=== PATIENT | female | born 1995 | race Caucasian/White ===

== ENCOUNTER 2020-09-02 12:47 | Emergency (ER) | payer BC, SELFPAY ==
--- NOTE | ~2020-09-02 | XR_ITS ---
EXAMINATION: XR chest 2V DATE: 09/02/2020 13:30 INDICATION: Chest tightness TECHNIQUE: PA and lateral views of the chest are obtained. COMPARISON: None available FINDINGS: The lungs are free of acute opacities. There is no pleural effusion or pneumothorax. The ca rdiomediastinal silhouette is normal. The visualized bones and soft tissues are unremarkable. Surgica l clips in the right upper quadrant are likely from prior cholecystectomy. IMPRESSION: 1. No acute cardiopulmonary abnormality. Reviewed, dictated and finalized at location A.
[2020-09-02 12:55] VITALS: BP 147/90; PULSE 94; RESP 17; TEMP 37; O2SAT 99
--- NOTE | 2020-09-02 12:59 | ECG_ITS ---
Measurements Intervals [place] Rate: 72 P: 41 IA: 138 QRS: 62 QRSD: 96 T: 10 QT: 372 QTc: 409 Interpretive Statements SINUS RHYTHM WITH MARKED SINUS ARRHYTHMIA DELAYED PRECORDIAL R/S TRANSITION BASELINE ARTIFACT- V3-V5 BORDERLINE ECG Electronically Signed On 09-02-2020 13:11:43 CDT by Sam Miles D.O.
[2020-09-02 13:26] LABS: Basophils Absolute Auto 0.1 K/mm3 (0.0-0.1); Basophils Percent Auto 0.8 % (0.2-1.2); Eosinophils Absolute Auto 0.1 K/mm3 (0-0.3); Eosinophils Percent Auto 1.3 % (0-4.4); Hematocrit 40.2 % (37.0-47.0); Hemoglobin 12.8 g/dL (12.0-15.0); Immature Granulocyte Absolute 0.05 K/mm3 (0.00-0.031); Immature Granulocyte Percent A 0.7 % (0-0.5); Lymphocytes Absolute Auto 2.46 K/mm3 (0.9-3.2); Lymphocytes Percent Auto 34.3 % (18.3-44.2); Mean Corpuscular HGB Conc 31.8 g/dl (32-36); Mean Corpuscular Hemoglobin 29.2 pg (26-34); Mean Corpuscular Volume 91.6 fl (80-100); Monocytes Absolute Auto 0.7 K/mm3 (0.1-0.6); Monocytes Percent Auto 9.7 % (2.6-8.5); Neutrophils Absolute Auto 3.8 K/mm3 (1.3-6.7); Neutrophils Percent Auto 53.2 % (45.5-73.1); Platelet Count Result 289 k/mm3 (150-375); Red Blood Count 4.39 M/mm3 (4.2-5.4); Red Cell Distribution Width 13.4 % (11.5-14.5); White Blood Count 7.2 K/mm3 (4.5-10.0)
[2020-09-02 13:35] LABS: INR 0.9; Partial Thromboplastin Time 27.3 SECONDS (22.3-36.8); Prothrombin Time 13.2 Seconds (11.1-14.7)
[2020-09-02 13:37] LABS: Anion Gap 9 mmol/L (8-16); Blood Urea Nitrogen 8 mg/dL (7-17); Calcium 9.3 mg/dL (8.4-10.2); Carbon Dioxide 26 mmol/L (22-30); Chloride 104 mmol/L (98-107); Estimated CRCL calculation 138 ml/min; Estimated Glomerular Filt Rate > 60; Glucose 109 mg/dL (65-105); Potassium 3.6 mmol/L (3.4-5.0); Sodium 139 mmol/L (137-145)
[2020-09-02 13:49] LABS: Troponin I < 0.012 ng/mL (0.000-0.034)
--- NOTE | 2020-09-02 15:46 | ED.CHESTPAIN ---
HPI - Chest Pain General Chief Complaint: Chest Pain Stated Complaint: chest congestion Time Seen by Provider: 09/02/20 15:33 Source: RN notes reviewed History of Present Illness HPI narrative: Patient presents emergency department from home for chest pain. Patient states she has been having pain for the past 3 days. Pain is located to left side the chest and does not radiate described as a tightness in nature. He states pain is worse when she gets up and moves around or does activity resolves with rest states that the pain will completely resolve when she rests she denies any fevers or chills shortness of breath cough abdominal pain nausea vomiting or any other symptoms. States she is taking no medication for the symptoms denies any trauma or injury Related Data Allergies Allergy/AdvReac Type Severity Reaction Status Date / Time No Known Allergies Allergy Verified 09/02/20 16:10 Review of Systems Review of Systems: Narrative: Gen.: Denies fevers or chills ENT: Denies congestion Respiratory: Denies shortness of breath or cough CV: See HPI GI: Denies abdominal pain nausea, emesis or diarrhea Musculoskeletal: Denies back pain or muscle pain Neuro: Denies numbness, tingling, weakness or focal weakness Skin: Denies rash Except as documented, all other systems reviewed and negative [facility] Past Medical History Medical History (Updated 09/02/20 @ 17:22 by José Antonio Bustos DO) Patient denies significant medical history Social History Social History (Updated 09/02/20 @ 15:47 by José Antonio Bustos DO) Smoking status: Never smoker Exam Narrative: Exam Narrative: APPEARANCE: No acute distress, nontoxic, resting in bed EYES: EOMI HEENT: Normocephalic, atraumatic, OMM RESPIRATORY: No respiratory distress Clear to auscultation bilaterally with no rhonchi wheezing or rales. CARDIOVASCULAR: Regular rate and rhythm without murmurs rubs or gallops. Chest: Pain with full motion of the chest with tenderness palpation left upper chest wall ABDOMINAL: Soft, nontender, nondistended, no rebound or guarding MUSCULOSKELETAl: Moves all extremities. No clubbing, cyanosis or edema. NEURO: Awake and alert. Following commands, speech normal, no focal deficits SKIN:: Warm, dry. No rashes lesions or abrasions PSYCHIATRIC: Normal affect/mood, Course Course Emergency Course: Discussed with patient results of workup and diagnosis. Discussed need for follow-up with primary care, proper use of medication, and reasons to return to the emergency department. Patient understands and agrees to current treatment plan Vital Signs Vital signs: Vital Signs Temperature 98.6 F 09/02/20 12:55 Pulse Rate 94 09/02/20 12:55 Respiratory Rate 17 09/02/20 12:55 Blood Pressure 147/90 H 09/02/20 12:55 Pulse Oximetry 99 09/02/20 12:55 Temperature 98.6 F 09/02/20 12:55 Pulse Rate 84 09/02/20 16:24 Respiratory Rate 16 09/02/20 16:08 Blood Pressure 137/82 09/02/20 16:08 Pulse Oximetry 100 09/02/20 16:08 MDM - Chest Pain MDM Narrative Medical decision making narrative: Patient's EKGs and labs are without significant high risk changes. Cardiac risk factors reviewed. Patient is felt likely low risk for ACS and reasonable for further risk stratification testing as an outpatient. Pain was not sudden or maximal in onset without tearing or ripping quality. No other signs of symptoms suggest aortic dissection. A low-risk Wells criteria is noted, PE is felt to be unlikely. No pneumonia seen on evaluation today. Patient is felt to be a reasonable candidate for continued evaluation as an outpatient Lab Data Result diagrams: 09/02/20 13:16 09/02/20 13:16 Labs: Lab Results 09/02/20 09/02/20 09/02/20 Range/Units 13:16 13:16 13:16 WBC 7.2 (4.5-10.0) K/mm3 RBC 4.39 (4.2-5.4) M/mm3 Hgb 12.8 (12.0-15.0) g/dL Hct 40.2 (37.0-47.0) % MCV 91.6 (80-100) fl MCH 29.2 (26-34) pg MCHC
[2020-09-02 15:58] LABS: D Dimer 0.27 ug/mL (<0.48)
[2020-09-02 16:08] VITALS: BP 137/82; PULSE 82; RESP 16; O2SAT 100
[2020-09-02 16:24] VITALS: PULSE 84
[2020-09-02] MEDS: KETOROLAC 30 MG/ML VIAL (*BKC) IV PUSH (16:47)
[2020-09-02 17:13] LABS: Troponin I < 0.012 ng/mL (0.000-0.034)
[2020-09-02 17:41] VITALS: BP 128/71; PULSE 94; RESP 20; O2SAT 99
== END 2020-09-02 17:43 | disposition home or self-care (01) ==
PROVIDERS: Emergency Medicine; Emergency Provider Emergency Medicine; PCP Family Medicine
DX: R07.89 Other chest pain (principal)
CPT/HCPCS: 36415; 71046; 80048; 84484; 85025; 85380; 85610; 85730; 93005; 96374; 99284; J1885

== ENCOUNTER 2023-09-09 11:07 | Emergency (ER) | payer OTHER, BC, SELFPAY ==
--- NOTE | ~2023-09-09 | US_ITS ---
US OB <=14 wk fetus w TV Ordering provider: Anastasiya Arroyo MD History: . Miscarriage . Comparison: None. Technique: Transabdominal and endovaginal ultrasound of the pelvis (Doppler ultrasound interrogation techniques used as needed for this exam.) FINDINGS: CERVIX: Normal. UTERUS: Measures 7.9x 4.4x 4.7 cm in length which is within normal limits and is anteverted. No myom etrial masses. ENDOMETRIUM: Gestational sac is seen measuring 0.4 cm which is equivalent to 5 weeks and 1 days. No pole or yolk sac seen. CUL DE SAC: No free fluid. RIGHT OVARY: Normal in size measuring 3 x 2.1x 2.5 cm. Normal echotexture. Doppler vascular flow pres ent. LEFT OVARY: Normal in size measuring 4x 2.1x 2.9 cm. Normal echotexture. Doppler vascular flow presen t. ADNEXA: Normal. No mass. IMPRESSION: Intrauterine gestational sac measuring 0.4 cm which is equivalent to 5 weeks and 1 day. No pole or yolk sac seen. Otherwise, normal pelvic ultrasound. Reviewed, dictated and finalized at location A. IMPRESSION: Intrauterine gestational sac measuring 0.4 cm which is equivalent to 5 weeks an d 1 day. No pole or yolk sac seen. Otherwise, normal pelvic ultrasound.
[2023-09-09 11:27] VITALS: BP 154/91; PULSE 93; RESP 18; TEMP 36.8; O2SAT 100
--- NOTE | 2023-09-09 12:13 | ED.FEMALEGU ---
HPI - Female Genitourinary General Chief complaint: Vaginal Bleeding Stated complaint: 7 weeks, vag bleed, cramping Time Seen by Provider: 09/09/23 12:10 28 years old white female 7 weeks 1 para 0 0 workup this morning with slight lower abdominal cramps, but the bathroom wiped showed dark brown blood. Patient denies having similar symptoms. Patient healthy otherwise, does not smoke or drink or uses drugs. Source: patient Related Data Allergies Allergy/AdvReac Type Severity Reaction Status Date / Time No Known Allergies Allergy Verified 09/02/20 16:10 Review of Systems Review of Systems: All systems reviewed & are unremarkable except as noted in HPI and below PMFSH Past Medical History Medical History Patient denies significant medical history Social History Social History Smoking status: Never smoker Exam Narrative: General appearance: Well-developed, well-nourished Skin: Normal color Head: Normocephalic, nontraumatic Eyes: Clear conjunctiva ENT: Oropharynx normal, ears normal, nose normal Neck: Supple, nontender Chest and respiratory: Airway patent, no respiratory distress, no accessory muscle use Heart: Regular rate/rhythm Abdomen: Soft, nontender, no organomegaly, quiet bowel sounds Vascular: Normal peripheral pulses, normal capillary refill. Musculoskeletal: Normal range of motion, nontender back Neurologic: Alert and oriented ?3, [employer] is normal as tested, no gross motor deficit : Speculum Exam - Vagina: normal appearance of the vagina and vaginal bleeding (Dark brown spots in the vaginal pouch, no active bleeding) Speculum Exam - Cervix: normal appearance of the cervix and Cervical os closed Bimanual Exam- Adnexa, other: no masses Course Vital Signs Vital signs: Vital Signs Temperature 36.8 C 09/09/23 11:27 Pulse Rate 93 09/09/23 11:27 Respiratory Rate 18 09/09/23 11:27 Blood Pressure 154/91 H 09/09/23 11:27 Pulse Oximetry 100 09/09/23 11:27 Oxygen Delivery Room Air 09/09/23 11:27 Temperature 36.8 C 09/09/23 11:27 Pulse Rate 93 09/09/23 11:27 Respiratory Rate 18 09/09/23 11:27 Blood Pressure 154/91 H 09/09/23 11:27 Pulse Oximetry 100 09/09/23 11:27 Oxygen Delivery Room Air 09/09/23 11:27 MDM - Female Genitourinary MDM Narrative Medical decision making narrative: Patient is 7 weeks , presents with vaginal spotting/bleeding My plan to get labs, pelvic ultrasound to rule out the possibility of miscarriage. Differential Diagnosis Differential diagnosis: Likely vaginitis and other (Threatened , ) Lab Data 09/09/23 13:04 09/09/23 13:04 Labs: Lab Results 09/09/23 Range/Units 13:04 WBC 9.1 (4.5-10.0) K/mm3 RBC 4.73 (4.2-5.4) M/mm3 Hgb 13.8 (12.0-15.0) g/dL Hct 42.3 (37.0-47.0) % MCV 89.4 (80-100) fl MCH 29.2 (26-34) pg MCHC 32.6 (32-36) g/dl RDW 13.8 (11.5-14.5) % Plt Count 335 (150-375) k/mm3 MPV 9.3 (7.4-10.4) fl Immature Gran % (Auto) 0.8 H (0-0.5) % Neut % (Auto) 67.1 (45.5-73.1) % Lymph % (Auto) 23.7 (18.3-44.2) % [place] % (Auto) 7.6 (2.6-8.5) % Eos % (Auto) 0.4 (0-4.4) % Baso % (Auto) 0.4 (0.2-1.2) % Lymph # (Auto) 2.15 (0.9-3.2) K/mm3 [place] # (Auto) 0.7 H (0.1-0.6) K/mm3 Eos # (Auto) 0.0 (0-0.3) K/mm3 Baso # (Auto) 0.0 (0.0-0.1) K/mm3 Abs Immat Gran (auto) 0.07 H (0.00-0.031) K/mm3 Absolute Neuts (auto) 6.1 (1.3-6.7) K/mm3 Absolute Nucleated RBC 0.000 (0.0-0.012) K/mm3 Nucleated RBC % 0.0 (0.0-0.2)
[2023-09-09 13:15] LABS: Basophils Percent Auto 0.4 % (0.2-1.2); Eosinophils Percent Auto 0.4 % (0-4.4); Hematocrit 42.3 % (37.0-47.0); Hemoglobin 13.8 g/dL (12.0-15.0); Immature Granulocyte Absolute 0.07 K/mm3 (0.00-0.031); Immature Granulocyte Percent A 0.8 % (0-0.5); Lymphocytes Absolute Auto 2.15 K/mm3 (0.9-3.2); Lymphocytes Percent Auto 23.7 % (18.3-44.2); Mean Corpuscular HGB Conc 32.6 g/dl (32-36); Mean Corpuscular Hemoglobin 29.2 pg (26-34); Mean Corpuscular Volume 89.4 fl (80-100); Mean Platelet Volume 9.3 fl (7.4-10.4); Monocytes Absolute Auto 0.7 K/mm3 (0.1-0.6); Monocytes Percent Auto 7.6 % (2.6-8.5); Neutrophils Absolute Auto 6.1 K/mm3 (1.3-6.7); Neutrophils Percent Auto 67.1 % (45.5-73.1); Platelet Count Result 335 k/mm3 (150-375); Red Blood Count 4.73 M/mm3 (4.2-5.4); Red Cell Distribution Width 13.8 % (11.5-14.5); White Blood Count 9.1 K/mm3 (4.5-10.0)
[2023-09-09 13:24] LABS: Alanine Aminotransferase 128 U/L (6-35); Albumin Level 4.8 g/dL (3.5-5.1); Alkaline Phosphatase 100 U/L (38-126); Anion Gap 11 mmol/L (4-12); Aspartate Amino Transferase 90 U/L (14-36); Bilirubin,Total 0.8 mg/dL (0.2-1.3); Blood Urea Nitrogen 6 mg/dL (7-17); Calcium 9.3 mg/dL (8.4-10.2); Carbon Dioxide 24 mmol/L (22-30); Chloride 102 mmol/L (98-107); Estimated CRCL calculation 186 ml/min; Estimated Glomerular Filt Rate > 60; Glucose 222 mg/dL (65-110); Potassium 3.8 mmol/L (3.4-5.0); Sodium 137 mmol/L (137-145)
[2023-09-09 13:40] LABS: Beta HCG Quantitative 656.57 mIU/ML
[2023-09-09 15:29] VITALS: BP 148/72; PULSE 85; RESP 16; O2SAT 98
== END 2023-09-09 15:30 | disposition home or self-care (01) ==
PROVIDERS: Emergency Provider Emergency Medicine; PCP Family Medicine
DX: O24.419 Gestational diabetes mellitus in pregnancy, unspecified control (principal); O20.0 Threatened abortion; Z3A.01 Less than 8 weeks gestation of pregnancy
CPT/HCPCS: 36415; 76801; 76817; 80053; 84702; 85025; 85461; 86850; 86900; 86901; 99284

== ENCOUNTER 2023-09-20 00:43 | Day surgery (SDC) | payer OTHER, BC, SELFPAY ==
--- NOTE | 2023-09-18 06:53 | P.HP_ITS ---
H&P: HPI History of Present Illness Date/Time: 09/18/23 06:53 Chief Complaint: First-trimester incomplete AB Narrative: was a very pleasant 28-year-old 1 para 0 in her 1st trimester with a missed A/ B. Serial ultrasound showed no growth. She for suction dilatation curettage. Risks and benefits were reviewed in great detail [facility] Past Medical History Medical History Patient denies significant medical history Social History Social History Smoking status: Never smoker Meds Home Medications and Allergies Home Medications Medication Instructions Recorded Confirmed Type ibuprofen 600 mg tablet (IBU) 600 mg PO Q6H PRN pain #20 tabs 09/02/20 Rx Allergies Allergy/AdvReac Type Severity Reaction Status Date / Time No Known Allergies Allergy Verified 09/02/20 16:10 Exam Const: General: cooperative, healthy appearing and comfortable Nutritional Appearance: average body habitus Orientation/consciousness: oriented to person, oriented to place and oriented to time HENMT: Head: normal to inspection Resp: Effort & Inspection: normal respiratory effort Cardio: Rate: regular rate Rhythm: regular rhythm Heart sounds: S1 normal heart sound present and S2 normal heart sound present GI: Inspection: normal to inspection : External Female Exam: normal external appearance Speculum Exam - Vagina: normal appearance of the vagina Speculum Exam - Cervix: normal appearance of the cervix ( blood seen at the os) and Cervical os closed Bimanual exam- vagina & uterus: enlarged Bimanual Exam- Adnexa, other: normal adnexae Assessment and Plan Assessment and plan (1) Missed : Code(s): O02.1 - Missed Status: Acute Assessment and Plan: proceed with suction dilatation curettage
[2023-09-18 08:06] VITALS: BMI 39.6
--- NOTE | 2023-09-18 08:07 | PC.NURSE ---
Report to the Outpatient Waiting Room, entrance under the green pavilion located off [facility], at time _1100_ on date _[id number]_. Planned Procedure Time: _1pm_. Time changes happen often and if your time is changed the preop area will call you the afternoon before. - You and your visitor will be asked to self-screen and do not enter if you have any COVID symptoms. - A mask is optional within the hospital at this time. Patients may have clear liquids (water, carbonated beverages, clear teas, apple juice) until 3 hours prior to surgery with a maximum of 20 ounces. - No food from midnight until time of surgery Take the following medications with a SIP of water the morning of surgery: ___None DO NOT STOP ANY OF YOUR OTHER PRESCRIPTION MEDICATIONS PRIOR TO SURGERY ?EXCEPT THE FOLLOWING Medications to discontinue per physician None Date to take last dose Please no make-up, nail divehi, hairspray, perfume, deodorant, or body powder the day of surgery. No jewelry (including any body piercings) or valuables the day of surgery, leave them at home. Please take a shower or bath the night before, or the morning of, surgery with an antibacterial soap. Wear comfortable, loose fitting clothing. - Jewelry must be removed prior to entering the operating room. Rings and piercings that are not removed may be cut off. - The hospital will not accept responsibility for valuables. - Please leave all valuables, including medications, at home the day of surgery. If you are going home after surgery, a licensed stud driver must drive you home. - NO public transportation without another adult if you receive anesthesia. - We recommend that an adult stay with you for 24 hours following discharge. - We also recommend that you do not drive, make important decision, drink alcoholic beverages, or take any drugs that were not prescribed by your health care provider for at least 24 hours after your discharge time. Follow any additional instructions given to you from your surgeon. If you or anyone in your household have experienced Covid symptoms in the past week, please notify your surgeon or the nurse liaison at the phone number below for possible testing. Telephone instructions given to __Jayeshmichael__and asked if any additional questions and then verbalized understanding. Patient advised to call surgeon office or pre surgery nurse liaison [phone] if any additional questions.
--- NOTE | 2023-09-20 06:18 | WPDHPUPDATE1 ---
History and Physical Update Update Date/Time: 09/20/23 06:18 History and Physical has been reviewed, including an updated exam of the patient. There are NO changes in the patient's condition. Risks, benefits, and alternatives have been discussed and questions answered. Patient agrees to proceed with procedure.
[2023-09-20 11:02] VITALS: BP 134/76; PULSE 88; RESP 18; TEMP 36.4; O2SAT 100
--- NOTE | 2023-09-20 11:24 | WPDANESEPPF ---
Anes - Initial Pre Proc Eval Procedure: Operation Date: 09/20/23 13:00 Proposed Procedures p Suction Dilation and Curettage - Jose Cruz Perez MD Date/Time: 09/20/23 11:24 Surgeon: Jose Cruz Perez MD Pre Op Diagnosis: Missed Ab Patient Data Age: 28 Gender: F Height: 1.57 m Weight: 98.2 kg Allergies Allergy/AdvReac Type Severity Reaction Status Date / Time No Known Allergies Allergy Verified 09/20/23 11:09 Home Medications Medication Instructions Recorded Confirmed Type hydrocodone 5 mg-acetaminophen 325 1 tablet PO Q4H PRN pain #14 tabs 09/20/23 Rx mg tablet Patient hx anesthesia problems: none Family hx anesthesia problems: none Results Review: All pre-operative results and documents have been reviewed as part of the pre-operative evaluation. [facility] Past Medical History Medical History Patient denies significant medical history Social History Social History Smoking status: Never smoker Living arrangements: with family Spiritual care concerns: No Anes - Eval Final PreProcedure Day of Procedure 09/20/23 11:24 Patient weight: overweight Heart: regular rate and rhythm Lungs: clear to auscultation Airway: Mallampati scale class III Neurological: alert and oriented Last oral intake: >/= 8 hours ASA classification: II Emergent: no Anesthetic plan: proceed Anesthesia type and monitoring: general GIVS and standard monitoring Results Review: All pre-operative results and documents have been reviewed as part of the pre-operative evaluation. Informed Consent: The patient's anesthetic plan and its attendant risks and benefits were discussed with the patient/family/POA. Questions were solicited and answers provided to the satisfaction of the patient/family/POA.
[2023-09-20] MEDS: LACTATED RINGERS 1,000 ML 30 ML IV CONT (11:31)
[2023-09-20] MEDS: ACETAMINOPHEN 500 MG TABLET 1000 MG PO (11:31)
[2023-09-20] MEDS: LIDOCAINE HCL 1% LOCAL INJ 20 ML VIAL 10 ML INFILTRATE (12:20)
--- NOTE | 2023-09-20 12:21 | W.PM.PROC2 ---
Procedure Note - Detailed Date of Procedure 09/20/23 Pre-op Diagnosis Missed Ab Post-op Diagnosis Same Procedure Performed Suction dilatation curettage Surgeon Jose Cruz Perez MD Anesthesia MAC and Local Indications 28-year-old female with first-trimester missed A/B Findings uterus sounded 9cm. Tissue consistent with products of conception Description of Procedure patient was prepped draped in normal sterile fashion placed in dorsal lithotomy position. Under excellent IV sedation weighted speculum placed in posterior fornix vagina. Anterior lip of the cervix grasped with single-tooth tenaculum. 2.5cc 1% xylocaine anesthesia placed at 2, 4, 8, 10:00 a.m. of the cervix. Uterus sounded to 9cm. Serial dilatation with fragmented dilators performed followed by passes the 5mm the 9. Suction curette moderate amount of tissue was heard removed. When a good grating sound was heard the instruments withdrawn. Patient went to recovery in satisfactory condition. All sponge, needle, instrument counts were correct. There were no immediate complications Estimated Blood Loss 25 Drains No Packing No Pathology Yes Complications No immediate complications Condition Stable Disposition PACU
[2023-09-20 12:25] VITALS: BP 149/88; RESP 18; O2SAT 99
[2023-09-20] MEDS: KETOROLAC 30 MG/ML VIAL (*BKC) IV PUSH (12:28)
[2023-09-20 12:55] VITALS: BP 133/82; PULSE 69; RESP 16
[2023-09-20 13:15] VITALS: BP 125/75; PULSE 66; RESP 16
== END 2023-09-20 13:17 | disposition home or self-care (01) ==
PROVIDERS: PCP Family Medicine; Visit Provider Obstetrics & Gynecology
PROC: (CPT 59820; principal; 2023-09-20 13:00)
DX: O02.1 Missed abortion (principal); Z79.891 Long term (current) use of opiate analgesic; Z79.1 Long term (current) use of non-steroidal anti-inflammatories (NSAID)
CPT/HCPCS: 59820; 88305; A9270; J1885; J2250; J2405; J2704; J3010; J7120

== ENCOUNTER 2024-06-25 13:20 | Outpatient (CLI) | payer SELFPAY ==
--- OUTSIDE RECORDS SUMMARY | 2024-06-25 13:41 | XMS_ITS | Data Portability ---
Author Organization [facility] Address [address] [place] [address] [place] [address] Care Team Providers Care Legal Instructor Name Role Phone CHRIS JACKSON Primary Care Provider [phone] Assessment Encounter Date Assessment Date Assessment LastModified by Organization Details LastModified Time 10/12/2020 10/12/2020 f/u pending pathology [email or web address] Not available 10/12/2020 10:51:05 08/25/2021 08/25/2021 Annual gynecological exam performed. Patient will come back in a year unless there are new symptoms. Not available 08/25/2021 16:05:55 06/14/2023 06/14/2023 Annual gynecological exam performed. Patient will come back in a year unless there are new symptoms. Not available 06/13/2023 15:41:45 Plan of Treatment Reminders Order Date Submit Date Provider Last Modified By Organization Details Last Modified Time Details Appointments None recorded. Lab test, urine 2020 021 [place], [address], [place], [address], 17:25:00 Referral None recorded. Procedures None recorded. Surgeries None recorded. Imaging None recorded. Medication Orders None recorded. Patient TargetsNo targets recorded. Patient InstructionsNo instructions recorded. Reason for Referral None Reported. Results Created Date Observation Date Name Description Value Unit Range Abnormal Flag Note LastModifiedBy Organization Detail LastModifiedTime 10/13/1910/12/2020 SURGI CHITRA PATHO LOGY surgical pathology SEE RESULT S BELOW CASE REPOR T: Surgi chitra Patho logy Repor t Case: [id number] Autho boaz guerra Provi linda: Latha Brunson NP Colle cted: 10/12 1741 Order ing Locat ion: [place] Path[facility] Recei rocio: 10/13 0100 Patho logis t: Tatum Torre MD Speci mens: A) - Cervi x, cervi chitra bx B) - Endoc ervix , ecc brush FINAL DIAGN OSIS: A. Cervi x, biops y: -Low- grade squam ous intra epith elial lesio n (STEPHEN- 1). B. Endoc ervix , curet tage: -Low- grade squam ous intra epith elial lesio n (STEPHEN- 1). Brice gutierrez by Tatum Torre MD on 021 at 1:31 PM ----- ----- ----- ----- ----- ----- ----- ----- ----- ----- ----- ----- ----- ----- ----- ----- ----- ---- CLINI CHITRA INFOR MATIO N: not provi ded MICRO SCOPI C DESCR IPTIO N: A micro scopi c exami natio n was perfo rmed. GROSS DESCR IPTIO N: A. Cervi x. The speci men is label ed with the patie nt's name, demog raphi cs and cerv ical biops y . Recei rocio in forma neal is a 0.3 x 0.3 x 0.1 cm aggre gate of minut e white tissu e and mucus . It is submi tted all in one casse tte. Gross ed by Sherrie Guajardo on B. Endoc ervix . The speci men is label ed with the patie nt's name, demog raphi cs and ECC brush . Recei rocio in forma neal and on a biops y brush is a 0.6 x 0.2 x 0.1 [address]gre gate of minut e white tissu e and mucus . It is submi tted all in 1 casse tte. 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 FINAL DIAGN OSIS: Negat joselyn for Intra epith elial Lesio n or Cintia hodge (NIL) . Funga l organ isms morph ologi nathalie consi stent with Gracie da spp. Elect alannah brown phuc d by Yashira Perez, CT on 2021 at 9:36 AM ----- ----- ----- ----- ----- ----- ----- ----- ----- ----- ----- ----- ----- ----- ----- ----- ----- ---- COMME NT: Note: This speci men was revie wed by a Cytot echno logis t and/o r Patho logis t (as indic ated in this repor t) after evalu ation using the Thinp rep Imagi ng Syste m. CLINI CHITRA INFOR MATIO N: Menst rual Statu s: LMP (if appli cable ): Clini chitra Histo ry/Pr eviou s Pap: Type of Neopl bill (if appli cable ): Signi fican t Clini chitra Findi ngs: Other Histo ry: Hormo forest (if appli cable ): PAP EDUCA TUSHAR L NOTE: The Pap Test is a scree vega test with an inher ent false negat joselyn rate. Liqui d-bas ed sampl ing may decre ase, but will not elimi ilya, false negat joselyn resul ts. A negat joselyn resul t does not precl ude the prese nce and/o r devel opmen t of disea se, since the prese nce of abnor mal cells in the sampl e depen ds on the locat ion of the lesio n and sampl ing techn ique. Caty nued regul ar scree vega is the best metho d of cance r preve ntion . If repor kierra cytol ogic findi ng do not corre late with physi chitra and/o r histo rical findi ngs, furth er inves tigat ion is recom mariana d, as clini nathalie brandon nted. Not Available [facility] (Lab) [address], [place], [address], 08/30/2021 10:38:52 06/14/19 24 06/14/2023 IMAGE GUIDE D PAP, REFLE X HPV IF ASCUS ONLY image guided Pap, reflex HPV ASCUS only SEE RESULT S BELOW CASE REPOR T: Cytol ogy Gynec ologi chitra Repor t Case: [id number] Autho boaz g Provi linda: Karla Nguyen, ALFIE Colle cted: 06/13 1445 Order ing Locat ion: [place] Patho logangelica Recei rocio: 06/16 0819 First Scree n: Cady john ak, Ron ay, CT Rescr een: Chester Vora ed, CT Speci men: Scree vega Pap - Image d, Cervi x STATE MENT OF ADEQU ACY: Satis facto ry for evalu ation Trans forma tion zone compo nent prese nt FINAL DIAGN OSIS: Negat joselyn for Intra epith elial Lesio n or Cintia hodge (NIL) . Elect alnanah beckyangelica phuc d by Chester Vora ed, CT on 024 at 10:52 PM ----- ----- ----- ----- ----- ----- ----- ----- ----- ----- ----- ----- ----- ----- ----- ----- ----- ---- COMME NT: This speci men was revie wed by a Cytot echno logis t and/o r Patho logis t (as indic ated in this repor t) after evalu ation using the Thinp rep Imagi ng Syste m. CLINI CHITRA INFOR MATIO N: Menst rual Statu s: LMP (if appli cable ): 2023 Clini chitra Histo ry/Pr eviou s Pap: Type of Neopl bill (if appli cable ): Signi fican t Clini chitra Findi ngs: Other Histo ry: Hormo forest (if appli cable ): PAP EDUCA TUSHAR L NOTE: The Pap Test is a scree vega test with an inher ent false negat joselyn rate. Liqui d-bas ed sampl ing may decre ase, but will not elimi ilya, false negat joselyn resul ts. A negat joselyn resul t does not precl ude the prese nce and/o r devel opmen t of disea se, since the prese nce of abnor mal cells in the sampl e depen ds on the locat ion of the lesio n and sampl ing techn ique. Caty nued regul ar scree vega is the best metho d of cance r preve ntion . If repor kierra cytol ogic findi ng do not corre late with physi chitra and/o r histo rical findi ngs, furth er inves tigat ion is recom mariana d, as clini nathalie brandon nted. Not Available [facility] (Lab) [address], [place], [address], 06/18/2023 23:55:46 Result Notes None recorded. Problems Name Problem SNOMED Code Status Onset Date Resolution Date Notes Provider Name and Address Organization Details Recorded Time SNOMED CT Concept Completed 201708/10/2020 Encntr for general adult medical exam w/o abnormal findings ;Recorde d Elsewher e: No Locat ion: [facility] S ource: EHR Ramp Attendant deena: N Practi ce ID: 0001 Abebe lable Time: 08:30:00 AM Mary Pizano [facility] 1 14:04:21 Insertio n of subcutan eous contrace ptive Completed 201408/10/2020 Insertio n of implanta ble subderma l contrace ptive;Re corded Elsewher e: No Locat ion: [facility] S ource: EHR Ramp Attendant deena: N Practi ce ID: 0001 Abebe lable Time: 11:00:00 AM Mary Pizano [facility] 1 14:04:16 Syphilis test finding [id number] Completed 201608/10/2020 Encounte r for STD screenin g;Record ed Elsewher e: No Locat ion: [facility] S ource: EHR Ramp Attendant deena: N Practi ce ID: 0001 Abebe lable Time: 04:30:00 PM Mary head [facility] 1 14:04:29 Educatio n Completed 201408/10/2020 Counseli ng contrace ptive manageme nt;Pract ice ID: 0001 Mary head [facility] 14:04:32 Pregnanc y test negative [id number] Completed 201408/10/2020 Negative Pregnanc y Test;Pra ctice ID: 0001 Mary head, [facility] 14:04:19 Subcutan eous contrace ptive implant present [id number] Completed 201408/10/2020 Removal Or Check Nexplano n;Practi ce ID: 0001 Mary head [facility] 14:04:[address] Concept Completed 201508/10/2020 Encntr for composite assembler exam (general ) (routine ) w/o abn findings ;Practic e ID: 0001 Mary head [facility] 14:04:[address] Concept Completed 201708/10/2020 Encounte r for surveill ance of other contrace ptives;P ractice ID: 0001 Mary head [facility] 14:04:27 Hypertro phic conditio n of skin [id number] Completed 201908/10/2020 Other hypertro phic disorder s of the skin;Pra ctice ID: 0001 Mary head [facility] 14:04:17 Educatio n Completed 201708/10/2020 Encounte r for other general counseli ng and advice on contrace ption;Re corded Elsewher e: No Locat ion: [facility] S ource: EHR Ramp Attendant deena: N Practi ce ID: 0001 Abebe lable Time: 08:30:00 AM Mary head [facility] 14:04:24 Body mass index 30+ - obesity [id number] Completed 201808/10/2020 Body mass index (BMI) 33.0-33. 9, adult;Re corded Elsewher e: No Locat ion: [facility] S ource: EHR Ramp Attendant deena: N Practi ce ID: 0001 Abebe lable Time: 09:45:00 AM Maryromain Pizano [place], [facility] 14:04:15 Procedur e Completed 201708/10/2020 Encounte r for checking , reinsert ion or removal of implanta ble subderma l contrace ptive;Re corded Elsewher e: No Locat ion: [facility] N Practi ce ID: 0001 Abebe lable Time: 09:45:00 AM Maryromain Pizano [place], [facility] 14:04:26 Problem Notes None recorded. Procedures Surgical History Date Name Laterality Status Provider Name and Address Organization Details Recorded Time 023 Control Implant Removal completed Pam Reveles [facility] [address], [place], [address], [facility] 05/12/2022 11:16:55 022 Date of Last Pap Smear completed Valerie López [facility] 06/13/2023 15:42:45 021 Control Implant Removal completed Pam Reveles [facility] [address], [place], [address], [facility] 12/02/2020 10:03:46 021 Control Implant Insertion completed Pam Reveles [facility] [address], [place], [address], [facility] 12/02/2020 10:03:52 021 Colposcopy completed Latha Anders CNM [address], [place], [address], [place] [facility] 10/12/2020 10:50:50 021 Colposcopy completed [facility] 10/12/2020 10:34:10 021 Colposcopy completed [facility] 10/12/2020 10:35:39 012 Appendectomy completed [facility] 10/12/2020 10:35:08 012 Cholecystectomy completed [facility] 10/12/2020 10:35:12 Imaging Results None recorded. Procedure Notes None recorded. Medical Equipment None Reported. Allergies No known drug allergies Medications Name Sig Start Date Stop Date Status Note LastModified by Organization Details LastModified Time fluconazo le 150 mg tablet TAKE 1 TABLET BY MOUTH 1 TIME 05/12 completed Not Available Not Available Not Available Flagyl 500 mg tablet take 1 tablet by oral route every 12 hours 03/14 completed Prescribe d Elsewhere : No Locati on: [facility] By: zuleyma de jesus DateTime: 7 09:26:22 AM Not Available Not Available Not Available ibuprofen 600 mg tablet TAKE 1 TABLET BY MOUTH EVERY 6 HOURS NEEDED FOR PAIN 05/12 completed Not Available Not Available Not Available azithromy stephen 500 mg tablet take 2 tablet by oral route for one dose 11/30 completed Prescribe d Elsewhere : No Locati on: [facility] By: sreekanth sheldon DateTime: 9 08:45:00 AM Not Available Not Available Not Available Nexplanon 68 mg subdermal implant 06/13 completed Not Available Not Available Not Available Gemtesa 75 mg tablet 06/13 completed Not Available Not Available Not Available Vitals Date Recorded Body height Body mass index (BMI) Body weight Systolic blood pressure Diastolic blood pressure Provider Name and Address Organization Details Last Updated DateTime 10/12/2020 167.64 cm 36.8 kg/m2 330025.0 6 g 129 mm[Hg] 82 mm[Hg] Bianca Terry [facility] 10:33:48 Date Recorded Body height Body mass index (BMI) Body weight Provider Name and Address Organization Details Last Updated DateTime 11/30/2020 167.64 cm 37.3 kg/m2 581040.84 g Tete [facility] 11/30/2020 17:24:08 Date Recorded Systolic blood pressure Diastolic blood pressure Provider Name and Address Organization Details Last Updated DateTime 11/30/2020 126 mm[Hg] 82 mm[Hg] Pam Reveles [facility] [address], [place], [address], [facility] 12/02/2020 10:03:36 Date Recorded Body height Body mass index (BMI) Body weight Systolic blood pressure Diastolic blood pressure Provider Name and Address Organization Details Last Updated DateTime 08/25/2021 158.12 cm 38.5 kg/m2 41508.58 g 112 mm[Hg] 78 mm[Hg] Tete [facility] 16:06:41 Date Recorded Body height Body mass index (BMI) Body weight Provider Name and Address Organization Details Last Updated DateTime 05/12/2022 158.12 cm 39.3 kg/m2 62552.39 g Tete Benson [facility] 05/12/2022 10:56:26 Date Recorded Systolic blood pressure Diastolic blood pressure Provider Name and Address Organization Details Last Updated DateTime 05/12/2022 128 mm[Hg] 80 mm[Hg] Pam Reveles [facility] [address], [place], [address], [facility] 05/12/2022 11:16:31 Date Recorded Body height Body mass index (BMI) Body weight Systolic blood pressure Diastolic blood pressure Provider Name and Address Organization Details Last Updated DateTime 06/14/2023 158.12 cm 39.9 kg/m2 42108.32 g 125 mm[Hg] 80 mm[Hg] Valentine Leonard [facility] 10:48:33 Social History Question Answer Notes LastModified by Organizat ion Details LastModified Time Tobacco Smoking Status Never Smoker Mary Pizano [place], [facility] 08/10/2020 14:07:13 What Is Your Level Of Alcohol Consumption? Occasional [email or web address] Information not available 10/12/2020 If You Are , What Was Your Level Of Alcohol Consumption Prior To ? None [email or web address] Information not available 10/12/2020 How Many Years Have You Consumed Alcohol? 10 Information not available 06/14/2023 Are You Blind Or Do You Have Difficulty Seeing? No [email or web address] Information not available 10/12/2020 What Is Your Level Of Caffeine Consumption? Occasional [email or web address] Information not available 10/12/2020 How Much Tobacco Do You Chew? None Information not available 06/13/2023 In The 14 Days Before Symptom Onset, Have You Had Close Contact With A Laboratory-confir med COVID-19 While That Case Was Ill? No [email or web address] Information not available 10/12/2020 In The 14 Days Before Symptom Onset, Have You Had Close Contact With A Person Who Is Under Investigation For COVID-19 While That Person Was Ill? No [email or web address] Information not available 10/12/2020 Have You Been To An Area Known To Be High Risk For COVID-19? No [email or web address] Information not available 10/12/2020 Are You Deaf Or Do You Have Serious Difficulty Hearing? No [email or web address] Information not available 10/12/2020 What Type Of Diet Are You Following? REGULAR [email or web address] Information not available 10/12/2020 What Is The Highest Grade Or Level Of School You Have Completed Or The Highest Degree You Have Received? 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 Yes Information not available 06/14/2023 Have You Ever Been Counseled For Unhealthy Alcohol Use? No [email or web address] Information not available 10/12/2020 Do You Use Protection During Sex? No Information not available 06/13/2023 Do You Use Your Seat Belt Or Car Seat Routinely? Yes [email or web address] Information not available 10/12/2020 Do You Have Smoke And Carbon Monoxide Detectors In Your Home? Yes [email or web address] Information not available 10/12/2020 How Much Tobacco Do You Smoke? No Information not available 06/13/2023 Do You Feel Stressed (tense, Restless, Nervous, Or Anxious, Or Unable To Sleep At Night)? [id number] Information not available 06/14/2023 Do You Use Any Illicit Or Recreational Drugs? No Information not available 10/12/2020 Do You Use Sunscreen Routinely? Yes [email or web address] Information not available 10/12/2020 Has Tobacco Cessation Counseling Been Provided? No [email or web address] Information not available 10/12/2020 Have You Used IV Drugs? No Information not available 06/13/2023 Do You Or Have You Ever Used Any Other Forms Of Tobacco Or Nicotine? No [email or web address] Information not available 10/12/2020 Sex: Unknown Functional Status Question Answer Note LastModified by Organizat ion Details LastModified Time Do you have difficulty walking or climbing stairs? No Information not available 08/25/2021 Are you able to walk? YESWOREST [email or web address] Information not available 10/12/2020 Are you able to care for yourself? Yes Information not available 08/25/2021 Do you have difficulty dressing or bathing? No Information not available 08/25/2021 What is your exercise level? Occasional Information not available 10/12/2020 Mental Status None recorded. Family History Relationship Description Onset Age of this Age Resolved Age Notes LastModified by Organization Details LastModified Time Father No current problems or disability [email or web address] Not available 08/10 14:07:06 Mother No current problems or disability Not available 06/02 /2021 14:07:06 Medical History Condition Response Allergies (Food, seasonal, environmental ) N Other N Breast Cancer N Drug/Latex Allergies/Reactions N Blood Transfusion N Dermatologic Disorders N Lung Disease N Defects or Inherited Disease N Breast Problem N Gestational Diabetes N Hematologic disorders N Anesthesia Complications N History of STI N Deep Vein Thrombosis N Polycystic ovary syndrome N Anxiety Disorder N Autoimmune disease N Arthritis N Infertility N Polyps N Acid Reflux (GERD) N History of abnormal pap Y Cancer N Stroke N Varicosities N Neurologic/Epilepsy N Endometriosis N High Cholesterol N Headaches N Fibromyalgia N Kidney Disease N Heart Problems N Kidney or Bladder Problems N Thyroid Problems N GI Problems N Eating Disorder N Anemia N Art (IVF or FET) N Psychiatric Illness N Ovarian Cancer N Diabetes N Pulmonary (TB, Asthma) N Hepatitis/Liver Disease N No Past Medical History N Eczema N Urinary Tract Infection N Abuse/Domestic Violence N Asthma N Trauma/Violence N Depression/ depression N Heart Disease N Pre-Eclampsia N Hypertension N Osteoporosis N Thrombophilias N Gynecological History Statement/Question Response Flow Moderate Date of Last Mammogram Date of LMP 05/31/2023 N Was last menstrual period normal Y STIs/STDs N Abnormal Pap Yes On BCP's at Conception? N HPV Vaccine Y Colposcopy 10/12/2020 Duration of Flow (days) 7 Current Control Method None Are cycles usually normal Y Frequency of Cycle (Q days) 28 Sexually Active? Y Menses Monthly Y Age of first menstrual cycle 15 Date of Last Pap Smear 08/25/2021 Sexual Problems? N LMP Approximate N 08/10/2020 Obstetrics History GPAL:G 0 P 0 0 0 0 Type Value Living 0 Total 0 Past Encounters Encounter ID Performer Location Encounter Start Date Encounter Closed Date Diagnosis/Indication Diagnosis SNOMED-CT Code Diagnosis ICD10 Code Diagnosis Note [id number] Pam Reveles [facility] [address] [address] 08/10/2020 16:32:37 08/10/2020 17:38:40 Gynecologic examination [id number] Z01.419 Take Calcium with Vitamin D 1200mg daily if not receiving in daily diet. It is strongly advised to have an annual flu shot and up can obtain at most pharmacies . If you have not had a TDap shot in the last 10 years you should obtain one as well. Discussed with patient & provided with informatio n regarding Gardisil vaccine to prevent the 4 strains for HPV that cause cervical cancer if under age 26. Encourage safe sexual practices, to use condoms and limit partners if not already in a monogamous relationsh ip. Do monthly self breast exams. Have mammogram yearly or every other year depending on family history. BRCA testing is now available for patients with strong genetic history of female cancer. If interested contact the office. Engage in daily exercise of low impact aerobic exercise 45-60 minutes 4-5 times weekly. Avoid tobacco and illicit drugs as well as using moderation with alcohol intake less than 1-2 8 oz beverages daily. This lifestyle behavior pattern will lead to less health conditions and longer life span. If BMI greater than 25 weight watchers or dietary consult advised. Patient received above instructio ns, and questions have been answered. If you have any questions please call or respond to this email. Patient was made aware of the patient portal and may obtain a paper copy of today's plan if desired. Pap sent STD declined No other issues or concerns this year. SBE taught Nexplanon appt made for removal/in sertion of new device. Elevated blood-pressure reading without diagnosis of hypertension [id number] R03.0 No sx's Feels BP readings very random Will check in with PCP office to ensure no further monitoring is required. [id number] Latha Anders CNM [facility] [address],[facility] [place] [address] 10/12/2020 10:15:39 10/12/2020 11:21:11 Low grade squamous intraepithelial lesion on cervical Papanicolaou smear [id number] 9105 R87.612 [id number] AMANDA Lynn [facility] [address],[facility] [place] [address] 08/25/2021 15:23:19 08/25/2021 16:39:20 Gynecologic examination [id number] Z01.419 Z11.3 Z11.8 Take Calcium with Vitamin D 1200mg daily if not receiving in daily diet. It is strongly advised to have an annual flu shot and up can obtain at most pharmacies . If you have not had a TDap shot in the last 10 years you should obtain one as well. Discussed with patient & provided with informatio n regarding Gardisil vaccine to prevent the 4 strains for HPV that cause cervical cancer if under age 26. Encourage safe sexual practices, to use condoms and limit partners if not already in a monogamous relationsh ip. Do monthly self breast exams. Have mammogram yearly or every other year depending on family history. BRCA testing is now available for patients with strong genetic history of female cancer. If interested contact the office. Engage in daily exercise of low impact aerobic exercise 45-60 minutes 4-5 times weekly. Avoid tobacco and illicit drugs as well as using moderation with alcohol intake less than 1-2 8 oz beverages daily. This lifestyle behavior pattern will lead to less health conditions and longer life span. If BMI greater than 25 weight watchers or dietary consult advised. Patient received above instructio ns, and questions have been answered. If you have any questions please call or respond to this email. Patient was made aware of the patient portal and may obtain a paper copy of today's plan if desired. WWEHx of abnormal pap last year - LGSIL, colposcopy with STEPHEN-1Repea t pap sent todayNexpl anon for control, happy with this method. No issues.STI testing declinedNo family hx of breast or ovarian cancerEnco uraged to establish care with [facility] in 1 year for WWE or sooner if needed [id number] Mad[facility] [address] [address] 11/30/2020 16:54:41 12/01/2020 23:52:17 Removal of subcutaneous contraceptive [id number] Z30.46 Removal site was cleansed with betadine and 3cc of lidocaine used for anesthesia . Device was removed in normal fashion without difficulty . Steri stips and pressure bandage placed. Insertion of subcutaneous contraceptive [id number] Z30.9 Patient is here currently on her menses. She was given all the r/b/a of placement of the Nexplanon device and has signed the consent. She is fully aware of all possible side effects of the device and has decided to move forward with placement. Insertion site was cleansed with betadine and 3cc lidocaine used for anesthesia . Device was placed in the left arm per usual fashion w/o complicati on and patient instructed to f/u in one month or earlier if there are any si/sx of infection or hypersensi tivity at the insertion siteRTO x 1yr or prn if issues. Screening procedure 2012 5006 Z13.9 [id number] [facility] [address] [address] 05/12/2022 10:46:12 05/14/2022 15:26:17 Removal of subcutaneous contraceptive [id number] Z30.46 Removal site was cleansed with betadine and 3cc of lidocaine used for anesthesia . Device was removed in normal fashion without difficulty . Steri stips and pressure bandage placed. Condoms for BC preferred option. [id number] Karla Nguyen ALFI[facility] [place] [address] [address] 06/14/2023 10:33:11 06/14/2023 14:42:05 Gynecologic examination [id number] Z01.419 Z11.3 Z11.8 WWEBC - condomspap updateddec lined STI screen Take Calcium with Vitamin D daily if not receiving in daily diet.It is strongly advised to have an annual flu shot and up can obtain at most pharmacies . If you have not had a TDap shot in the last 10 years you should obtain one as well. Discussed with patient & provided with informatio n regarding Gardisil vaccine to prevent the 4 strains for HPV that cause cervical cancer if under age 26.Encoura ge safe sexual practices, to use condoms and limit partners if not already in a monogamous relationsh ip.Do monthly self breast exams. BRCA testing is now available for patients with strong genetic history of female cancer. If interested contact the office. Engage in regular exercise. Avoid tobacco and illicit drugs. This lifestyle behavior pattern will lead to less health conditions and longer life span. If BMI greater than 25 dietary consult advised.Bassam castellon received above instructio ns, and questions have been answered. If you have any questions please call or respond to this email. Patient was made aware of the patient portal and may obtain a paper copy of today's plan if desired. Health Concerns Section Related Observation LastModified by Organization Detai ls LastModified Time None Recorded Concern Status LastModified by Organization Details LastModified Time None Recorded Advance Directives Directive None Recorded Payers Encounter Date Sequence Insurance Name Policy Number Policy Smith Covered Member ID Smith Member ID Guarantor Name 10/12/2020 1 [facility] ([employer]) 2 José Antonio Valles Airam [id number] Cathy Brent Kirkland 11/30/2020 1 [place] [id number] José Antonio Alegria [id number] Cathy Kennedy Isael 08/25/2021 1 [place] [id number] José Antonio Alegria [id number] Cathy Brnet Kirkland 08/25/2021 1 [facility] [id number] Cathymichael Alegria [id number] Cathy Kirkland 05/12/2022 1 [facility] (PPO) [id number] Cathymichael Alegria [id number] Cathy Brent Kirkland 06/14/2023 1 [employer] [id number] Cathymichael Kirkland [id number] Cathy Kirkland Notes Date Note Type Note Provider Name and Address Organization Details Recorded Time 10/12/2020 text/html Lsil pap hx lsil 2018, no colpo, no hx leep reviewed pathology, procedure, follow up, consent signed Latha Anders CNM [address], [place], [address], [facility] 10/12/2020 10:51:46 11/30/2020 text/html Nexplanon removal/reinsertion . Madelyn head [facility] 08/28/2021 11:38:58 08/25/2021 text/html Annual GYNReport ed bypatient.Menstrual cycle:Normal menses Urinary symptoms:No hematuria; No incontinence Vulva:No genital lesion Vagina:Normal vaginal discharge Breast:No breast pain; No breast lump; No nipple discharge Current Contraception:Satis fied with current contraception; Subdermal contraceptive implant Sexual complaints:No sexual complaints; No pain during intercourse; Normal libido Menopausal Symptoms:No menopausal symptoms; Normal vaginal lubrication Psychological symptoms:No depression; No anxiety; No PMDD Preventive measures:Encourage self breast examination; Encourage regular exercise; Encourage no tobacco use; Encourage regular mammograms starting age 40 AMANDA Lynn [address], [place], [address], [facility] 09/01/2021 12:23:11 05/12/2022 text/html Here today for nexplanon removal. AMANDA Vargas- [address], [place], [address], [facility] 05/12/2022 11:18:03 06/14/2023 text/html Annual GYNReport ed bypatient.Menstrual cycle:Normal menses Urinary symptoms:No hematuria; No incontinence Vulva:No genital lesion Vagina:Normal vaginal discharge Breast:No breast pain; No breast lump; No nipple discharge Current Contraception:Satis fied with current contraception; Condoms Sexual complaints:No sexual complaints; No pain during intercourse; Normal libido Menopausal Symptoms:No menopausal symptoms; Normal vaginal lubrication Psychological symptoms:No depression; No anxiety; No PMDD Preventive measures:Encourage self breast examination; Encourage regular exercise; Encourage no tobacco use; Encourage regular mammograms starting age 40Notes:WWElast pap 08/2021 - normal AMANDA Lynn [address], [place], [address], [facility] 06/14/2023 13:36:34 OBGyn Episode No OBEpisode recorded.
== END 2024-06-25 13:21 | disposition home or self-care (01) ==
LOC: CHSLAB 13:22
PROVIDERS: PCP Family Medicine; Visit Provider Obstetrics & Gynecology
DX: Z34.80 Encounter for supervision of other normal pregnancy, unspecified trimester (principal)
CPT/HCPCS: 36415; 84702

== ENCOUNTER 2024-07-30 13:33 | Outpatient (CLI) | payer OTHER, SELFPAY ==
--- OUTSIDE RECORDS SUMMARY | 2024-07-30 13:37 | XMS_ITS | Data Portability ---
Author Organization [facility] Address [address] [place] [address] [place] [address] Care Team Providers Care Ceramic Coater Machine Name Role Phone CHRIS JACKSON Primary Care Provider Assessment Encounter Date Assessment Date Assessment LastModified by Organization Details LastModified Time 10/12/2020 10/12/2020 f/u pending pathology [email or web address] Not available 10/12/2020 10:51:05 08/25/2021 08/25/2021 Annual [...] None recorded. Lab test, urine 2020 021 [address], [address], [place], [address], 17:25:00 Referral None recorded. Procedures None recorded. [...] chitra Patho logy Repor t Case: [id number] Autho boaz guerra Provi linda: Latha [...] ed by Sherrie Guajardo on Not Available [facility] (Lab) [address], [place], [address], 10/13/2020 14:33:54 12/01/19 21 11/30/2020 pregn trice test, urine HCG negati ve Not Available [facility] [address], [place], [address], 11/30/2020 17:24:39 08/26/19 22 08/25/2021 IMAGE GUIDE D PAP, REFLE X HPV IF ASCUS ONLY image guided Pap, reflex HPV ASCUS only SEE RESULT S BELOW CASE REPOR T: Cytol ogy Gynec ologi chitra Repor t Case: [id number] Autho boaz guerra Provi linda: Doug Oliver Colle cted: 08/25 1628 CUSTOMER EXPERIENCE MANAGER Order ing Locat ion: [place] Patho log[facility] Recei rocio: 08/26 0124 First Scree n: Mine Adrian, CT Rescr een: Yashira Perez, CT Speci men: Scree vega Pap - [...] with Gracie da spp. Elect alannah brown hpuc d by Yashira Perez, CT on 2021 [...] as clini nathalie brandon nted. Not Available [facility] (Lab) [address], [place], [address], 08/30/2021 10:38:52 06/14/19 24 06/14/2023 IMAGE GUIDE [...] n or Cintia hodge (NIL) . Elect alannah beckyangelica phuc d by Chester Vora ed, [...] as clini nathalie brandon nted. Not Available [facility] (Lab) [address], [place], [address], 06/18/2023 23:55:46 Result Notes None recorded. Problems Name Problem SNOMED Code Status Onset Date Resolution Date Notes Provider Name and Address Organization Details Recorded Time SNOMED CT Concept Completed 201708/10/2020 Encntr for general adult medical exam w/o abnormal findings ;Recorde d Elsewher e: No Locat ion: [facility] S ource: EHR Client Care Consultant deena: N Akhil ce ID: 0001 Abebe lable Time: 08:30:00 AM Mary Pizano [facility] 14:04:21 Implanta tion of subcutan eous contrace ptive Completed 201408/10/2020 Insertio n of implanta ble subderma l contrace ptive;Re corded Elsewher e: No Locat ion: [facility] S ource: EHR Client Care Consultant deena: N Akhil ce ID: 0001 Abebe lable Time: 11:00:00 AM Mary Pizano [facility] 1 14:04:16 Syphilis test finding [id number] Completed 201608/10/2020 Encounte r for STD screenin g;Record ed Elsewher e: No Locat ion: [facility] S ource: EHR Client Care Consultant deena: N Practi ce ID: 0001 Abebe lable Time: 04:30:00 PM Mary head [facility] 14:04:29 Educatio n Completed 201408/10/2020 Counseli ng contrace ptive manageme nt;Pract ice ID: 0001 Mary head [facility] 14:04:32 Pregnanc y test negative [id number] Completed 201408/10/2020 Negative Pregnanc y Test;Pra ctice ID: 0001 Mary head [facility] 14:04:19 Subcutan eous contrace ptive implant present [id number] Completed 201408/10/2020 Removal Or Check Nexplano n;Practi ce ID: 0001 Mary head [facility] 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 14:04:[address] Concept Completed 201708/10/2020 Encounte r for surveill ance of other contrace ptives;Chaya ractice ID: 0001 Mary head [facility] 14:04:27 Hypertro phic conditio n of skin [id number] Completed 201908/10/2020 Other hypertro phic disorder s of the skin;Pra ctice ID: 0001 Mary head [facility] 14:04:17 Educatio n Completed 201708/10/2020 Encounte r for other general counseli ng and advice on contrace ption;Re corded Elsewher e: No Locat ion: Rhonda spencer [facility] S ource: EHR Client Care Consultant deena: N Practi ce ID: 0001 Abebe lable Time: 08:30:00 AM Mary head [facility] 14:04:24 Body mass index 30+ - obesity 862559077 Completed 201808/10/2020 Body mass index (BMI) 33.0-33. 9, adult;Re corded Elsewher e: No Locat ion: [facility] N Practi ce ID: 0001 Abebe lable Time: 09:45:00 AM Mary Pizano [place], [facility] 14:04:15 Procedur e Completed 201708/10/2020 Encounte r for checking , reinsert ion or removal of implanta ble subderma l contrace ptive;Re corded Elsewher e: No Locat ion: [facility] deena: N Practi ce ID: 0001 Abebe lable Time: 09:45:00 AM Maryromain Pizano [place], [facility] 14:04:26 Problem Notes None recorded. Procedures Surgical History Date Name Laterality Status Provider Name and Address Organization Details Recorded Time 023 Control Implant Removal completed Pam Reveles [facility] [address], [place], [address], [facility] 05/12/2022 11:16:55 022 Date of Last Pap Smear completed Valerie López [facility] 06/13/2023 15:42:45 021 Control Implant Removal completed Pam Reveles [facility] [address], [place], [address], [facility] 12/02/2020 10:03:46 021 Control Implant Insertion completed Pam Reveles [facility] [address], [place], [address], [facility] 12/02/2020 10:03:52 021 Colposcopy completed Latha Anders CNM [address], [place], [address], [facility] 10/12/2020 10:50:50 021 Colposcopy completed [facility] 10/12/2020 10:34:10 021 Colposcopy completed [facility] 10/12/2020 10:35:39 012 Appendectomy completed [facility] 10/12/2020 10:35:08 012 Cholecystectomy completed [facility] 10/12/2020 10:35:12 Imaging Results None recorded. [...] Prescribe d Elsewhere : No Locati on: [facility] Mo dify By: zuleyma de jesus DateTime: 7 09:26:22 AM Not Available Not Available Not Available ibuprofen 600 mg tablet TAKE 1 TABLET BY MOUTH EVERY 6 HOURS NEEDED FOR PAIN 05/12 completed Not Available Not Available Not Available azithromy stephen 500 mg tablet take 2 tablet by oral route for one dose 11/30 completed Prescribe d Elsewhere : No Locati on: [facility] Mo dify By: sreekanth green Encoun pito DateTime: 9 08:45:00 AM Not Available Not [...] Updated DateTime 10/12/2020 167.64 cm 36.8 kg/m2 127314.0 6 g 129 mm[Hg] 82 mm[Hg] Bianca Terry [facility] 10:33:48 Date Recorded Body height Body mass index (BMI) Body weight Provider Name and Address Organization Details Last Updated DateTime 11/30/2020 167.64 cm 37.3 kg/m2 945159.84 g Tete Salcedo [facility] 11/30/2020 17:24:08 Date Recorded Systolic blood pressure Diastolic blood pressure Provider Name and Address Organization Details Last Updated DateTime 11/30/2020 126 mm[Hg] 82 mm[Hg] Pam Reveles [facility] [address], [place], [address], [facility] 12/02/2020 10:03:36 Date Recorded Body height Body mass index (BMI) Body weight Systolic blood pressure Diastolic blood pressure Provider Name and Address Organization Details Last Updated DateTime 08/25/2021 158.12 cm 38.5 kg/m2 98423.58 g 112 mm[Hg] 78 mm[Hg] Tete [facility] 16:06:41 Date Recorded Body height Body mass index (BMI) Body weight Provider Name and Address Organization Details Last Updated DateTime 05/12/2022 158.12 cm 39.3 kg/m2 23169.39 g Tete Benson [facility] 05/12/2022 10:56:26 Date Recorded Systolic blood pressure Diastolic blood pressure Provider Name and Address Organization Details Last Updated DateTime 05/12/2022 128 mm[Hg] 80 mm[Hg] Pam Reveles [facility] [address], [place], [address], [facility] 05/12/2022 11:16:31 Date Recorded Body height Body mass index (BMI) Body weight Systolic blood pressure Diastolic blood pressure Provider Name and Address Organization Details Last Updated DateTime 06/14/2023 158.12 cm 39.9 kg/m2 73175.32 g 125 mm[Hg] 80 mm[Hg] Valentine Leonard [facility] 10:48:33 Social History Question Answer Notes LastModified by Organizat ion Details LastModified Time Tobacco Smoking Status Never Smoker Mary Pizano [place], [facility] 08/10/2020 14:07:13 If You Are , What Was Your Level Of Alcohol Consumption Prior To ? None [email or web address] Information not available 10/12/2020 How Many Years Have You Consumed Alcohol? 10 Information not available 06/14/2023 Are You Blind Or Do You Have Difficulty Seeing? No [email or web address] Information n ot available 10/12/2020 What Is Your Level Of Caffeine Consumption? Occasional [email or web address] Information not available 10/12/2020 How Much Tobacco Do You Chew? None Information not available 06/13/2023 In The 14 Days Before Symptom Onset, Have You Had Close Contact With A Laboratory-confirm ed COVID-19 While That Case Was Ill? No [email or web address] Information n ot available 10/12/2020 In The 14 Days Before Symptom Onset, Have You Had Close Contact With A Person Who Is Under Investigation For COVID-19 While That Person Was Ill? No [email or web address] Information not available 10/12/2020 Have You Been To An Area Known To Be High Risk For COVID-19? No [email or web address] Information not available 10/12/2020 Are You Deaf Or Do You Have Serious Difficulty Hearing? No [email or web address] Information not available 10/12/2020 What Type Of Diet Are You Following? REGULAR [email or web address] Information n ot available 10/12/2020 What Is The Highest Grade Or Level Of School You Have Completed Or The Highest Degree You Have Received? [id number] Information not available 06/13/2023 Are There Any Guns Present In Your Home? Yes Information not available 06/14/2023 Have You Ever Been Counseled For Unhealthy Alcohol Use? No [email or web address] Information not available 10/12/2020 Do You Use Protection During Sex? No Information not available 06/13/2023 Do You Use Your Seat Belt Or Car Seat Routinely? Yes [email or web address] Information not available 10/12/2020 Do You Have Smoke And Carbon Monoxide Detectors In Your Home? Yes [email or web address] Information not available 10/12/2020 How Much Tobacco Do You Smoke? No Information not available 06/13/2023 Do You Use Sunscreen Routinely? Yes [email or web address] Information not available 10/12/2020 Has Tobacco Cessation Counseling Been Provided? No [email or web address] Information not available 10/12/2020 Have You Used IV Drugs? No Information not available 06/13/2023 Do You Have Difficulty Walking Or Climbing Stairs? No Information not available 08/25/2021 Sex: Unknown Functional Status Question Answer Note LastModified by Organizat ion Details LastModified Time Do you use any illicit or recreational drugs? No [email or web address] Information not available 10/12/2020 Do you or have you ever used any other forms of tobacco or nicotine? No [email or web address] Information not available 10/12/2020 What is your level of alcohol consumption? Occasional [email or web address] Information not available 10/12/2020 Are you able to walk? YESWOREST [email or web address] Information not available 10/12/2020 Are you able to care for yourself? 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 No Information not available 08/25/2021 What is your exercise level? Occasional [email or web address] Information not available 10/12/2020 Mental Status Question Answer Note LastModified by Organization D etails LastModified Time Do you feel stressed (tense, restless, nervous, or anxious, or unable to sleep at night)? [id number] Information not available 06/14/2023 Family History Relationship Description Onset Age of this Age Resolved Age Notes LastModified by Organization Details LastModified Time Father No current problems or disability [email or web address] Not available 08/10 14:07:06 Mother No current problems or disability [email or web address] Not available 08/10 14:07:06 Medical History Condition Response Allergies (Food, seasonal, environmental ) N Other N Breast Cancer N Drug/Latex Allergies/Reactions N Blood Transfusion N Lung Disease N Dermatologic Disorders N Defects or Inherited Disease N Breast [...] SNOMED-CT Code Diagnosis ICD10 Code Diagnosis Note [id number] Pam Reveles [facility] [address] [address] 08/10/2020 16:32:37 08/10/2020 17:38:40 Gynecologic examination 32187163 Z01.419 Take Calcium with Vitamin D 1200mg [...] Elevated blood-pressure reading without diagnosis of hypertension 429072703 R03.0 No sx's Feels BP readings very random Will check in with PCP office to ensure no further monitoring is required. [id number] Latha Anders CNM [facility] [address],[facility] [place] [address] 10/12/2020 10:15:39 10/12/2020 11:21:11 Low grade squamous intraepithelial lesion on cervical Papanicolaou smear 0953809893 9105 R87.612 [id number] AMANDA Lynn [facility] [address] [address] 08/25/2021 15:23:19 08/25/2021 16:39:20 Gynecologic examination 97990576 Z01.419 Z11.3 Z11.8 Take Calcium with Vitamin [...] year for WWE or sooner if needed [id number] AMANDA Vargas[facility] [address] [address] 11/30/2020 16:54:41 12/01/2020 23:52:17 Removal of subcutaneous contraceptive 810897029 Z30.46 Removal site was cleansed with betadine and 3cc of lidocaine used for anesthesia . Device was removed in normal fashion without difficulty . Steri stips and pressure bandage placed. Implantati on of subcutaneous contraceptive 597244316 Z30.9 Patient is here currently on her [...] if issues. Screening procedure 2012 5006 Z13.9 [id number] [facility] [address] [address] 05/12/2022 10:46:12 05/14/2022 15:26:17 Removal of subcutaneous contraceptive 526454104 Z30.46 Removal site was cleansed with betadine and 3cc of lidocaine used for anesthesia . Device was removed in normal fashion without difficulty . Steri stips and pressure bandage placed. Condoms for BC preferred option. [id number] AMANDA Lynn [facility] [address],[facility] [place] [address] 06/14/2023 10:33:11 06/14/2023 14:42:05 Gynecologic examination 91871789 Z01.419 Z11.3 Z11.8 EB - condomspap updateddec lined STI screen Take [...] Smith Member ID Guarantor Name 10/12/2020 1 [facility] ([employer]) 2 José Antonio Valles Airam [id number] Cathy Kirkland 11/30/2020 1 [employer] [id number] José Antonio Alegria [id number] Cathyliu Kirkland 08/25/2021 1 [place] [id number] José Antonio Airam [id number] Cathymichael Kirkland 08/25/2021 1 [employer] [id number] Cathy Alegria [id number] Cathy Kirkland 05/12/2022 1 [facility] INSURANCE [facility] (PPO) [id number] Cathy Alegria [id number] Cathy Kirkland 06/14/2023 1 [employer] [id number] Cathy Kirkland [id number] Cathy Kirkland Notes Date Note Type Note Provider Name and Address Organization Details Recorded Time 10/12/2020 text/html Lsil pap hx lsil 2018, no colpo, no hx leep reviewed pathology, procedure, follow up, consent signed Latha Anders CNM [address], [place], [address], [facility] 10/12/2020 10:51:46 11/30/2020 text/html Nexplanon removal/reinsertion . Madelyn head, [facility] 08/28/2021 11:38:58 08/25/2021 text/html Annual GYNReport [...] use; Encourage regular mammograms starting age 40 Karla LaMay, WHNP [address], [place], [address], [facility] 09/01/2021 12:23:11 05/12/2022 text/html Here today for nexplanon removal. AMANDA Vargas- [address], [place], [address], [facility] 05/12/2022 11:18:03 06/14/2023 text/html Annual GYNReport [...] - normal AMANDA Lynn [address], [place], [address], [facility] 06/14/2023 13:36:34 OBGyn Episode No OBEpisode recorded.
[2024-07-30 18:44] LABS: Hematocrit 38.5 % (37.0-47.0); Hemoglobin 12.1 g/dL (12.0-15.0)
[2024-07-30 19:11] LABS: Anion Gap 9 mmol/L (4-12); Blood Urea Nitrogen 9 mg/dL (7-17); Calcium 10.3 mg/dL (8.4-10.2); Carbon Dioxide 28 mmol/L (22-30); Chloride 101 mmol/L (98-107); Estimated Glomerular Filt Rate > 60; Glucose 179 mg/dL (65-110); Potassium 3.9 mmol/L (3.4-5.0); Sodium 138 mmol/L (137-145)
== END 2024-07-30 13:34 | disposition home or self-care (01) ==
LOC: ANHGOSHLAB 13:35
PROVIDERS: Anesthesiology; PCP Family Medicine; Visit Provider Obstetrics & Gynecology
DX: O02.1 Missed abortion (principal); E11.9 Type 2 diabetes mellitus without complications
CPT/HCPCS: 36415; 80048; 85014; 85018

== ENCOUNTER 2024-07-31 01:18 | Day surgery (SDC) | payer OTHER, SELFPAY ==
--- NOTE | 2024-07-29 12:15 | PM.IMHP ---
H&P: HPI History of Present Illness Date/Time: 07/29/24 12:15 Chief Complaint: 1st trimester missed A/B Narrative: Very pleasant 29-year-old 2 para 0 under 1st trimester with a missed A/B. This is her 2nd and she will undergo hysteroscopy dilatation curettage has away from watchful waiting did not occur. Risks and benefits reviewed. [facility] Past Medical History Medical History Patient denies significant medical history Social History Social History Smoking status: Never smoker Living arrangements: with family Spiritual care concerns: No Meds Home Medications and Allergies Home Medications ?Medication ?Instructions ?Recorded ?Confirmed ?Type hydrocodone 5 mg-acetaminophen 325 1 tablet PO Q4H PRN pain #14 tabs 09/20/23 Rx mg tablet Allergies Allergy/AdvReac Type Severity Reaction Status Date / Time No Known Allergies Allergy Verified 09/20/23 11:09 Exam Const: General: cooperative, healthy appearing and comfortable Nutritional Appearance: average body habitus Orientation/consciousness: oriented to person, oriented to place and oriented to time HENMT: Head: normal to inspection Resp: Effort & Inspection: normal respiratory effort Cardio: Rate: regular rate Rhythm: regular rhythm Heart sounds: S1 normal heart sound present and S2 normal heart sound present GI: Inspection: normal to inspection : External Female Exam: normal external appearance Speculum Exam - Vagina: normal appearance of the vagina Speculum Exam - Cervix: normal appearance of the cervix Bimanual exam- vagina & uterus: enlarged Bimanual Exam- Adnexa, other: normal adnexae Assessment and Plan Assessment and plan (1) Missed : Code(s): O02.1 - Missed Status: Acute Plan Will proceed with suction dilatation curettage
[2024-07-29 15:08] VITALS: BMI 35.9
--- NOTE | 2024-07-29 15:20 | PC.NURSE ---
Report to the Outpatient Waiting Room, entrance under the green pavilion located off [facility], at time ___12:30PM____ on date ___07/31/24____. Planned Procedure Time: ___2:30PM .? Time changes happen often and if your time is changed the preop area will call you the afternoon before. - You and your visitor will be asked to self-screen and do not enter if you have any COVID symptoms. Please call surgeon if you need to reschedule. - A mask is optional within the hospital at this time. Patients may have clear liquids (water, carbonated beverages, clear teas, apple juice) until 3 hours prior to surgery (11:30AM) with a maximum of 20 ounces. - No food from midnight until time of surgery and no smoking, or chewing tobacco (or any form of nicotine). No chewing gum, candy or mints. Take only the following medications with a SIP of water on the morning of surgery: ___NONE DO NOT STOP ANY OF YOUR OTHER PRESCRIPTION MEDICATIONS PRIOR TO SURGERY EXCEPT THE FOLLOWING Hold all vitamins and supplements for 3 days per anesthesiologist. Medications to discontinue per physician NONE Date to take last dose Please no make-up, nail bengali, hairspray, perfume, deodorant, or body powder the day of surgery.? No jewelry (including any body piercings) or valuables the day of surgery, leave them at home.? Please take a shower or bath the night before, or the morning of, surgery with an antibacterial soap.? Wear comfortable, loose fitting clothing.? - Jewelry must be removed prior to entering the operating room.? Rings and piercings that are not removed may be cut off. - The hospital will not accept responsibility for valuables.? - Please leave all valuables, including medications, at home the day of surgery. If you are going home after surgery, a licensed utility worker driver must drive you home.? - NO public transportation without another adult if you receive anesthesia. - We recommend that an adult stay with you for 24 hours following discharge. - We also recommend that you do not drive, make important decision, drink alcoholic beverages, or take any drugs that were not prescribed by your health care provider for at least 24 hours after your discharge time. Follow any additional instructions given to you from your surgeon. Telephone instructions given to ___PATIENT and asked if any additional questions and then verbalized understanding. Patient advised to call surgeon office or pre surgery nurse liaison [phone] if any additional questions.
--- NOTE | 2024-07-31 06:12 | WPDHPUPDATE1 ---
History and Physical Update Update Date/Time: 07/31/24 06:12 History and Physical has been reviewed, including an updated exam of the patient. There are NO changes in the patient's condition. Risks, benefits, and alternatives have been discussed and questions answered. Patient agrees to proceed with procedure.
[2024-07-31 11:15] VITALS: BP 137/68; PULSE 80; RESP 16; TEMP 36.8; O2SAT 100
[2024-07-31] MEDS: ACETAMINOPHEN 500 MG TABLET 1000 MG PO (11:42)
[2024-07-31] MEDS: LACTATED RINGERS 1,000 ML 30 ML IV CONT (11:55)
[2024-07-31 12:00] LABS: Glucose Point of Care 135 mg/dl (65-105)
--- NOTE | 2024-07-31 12:01 | WPDANESEPPF ---
Anes - Initial Pre Proc Eval Procedure: Operation Date: 07/31/24 13:30 Proposed Procedures p Suction Dilation and Curettage - Jose Cruz Perez MD Date/Time: 07/31/24 12:01 Surgeon: Jose Cruz Perez MD Pre Op Diagnosis: missed ab Patient Data Age: 29 Gender: F Height: 1.57 m Weight: 89 kg Allergies Allergy/AdvReac Type Severity Reaction Status Date / Time No Known Allergies Allergy Verified 07/29/24 15:06 Home Medications ?Medication ?Instructions ?Recorded ?Confirmed ?Type metformin 500 mg tablet 500 mg PO QAM 07/29/24 07/31/24 History hydrocodone 5 mg-acetaminophen 325 1 tablet PO Q4H PRN pain #20 tabs 07/31/24 Rx mg tablet Laboratory Tests 07/31/24 11:58 POC Capillary Glucose 135 H mg/dl (65-105) Patient hx anesthesia problems: none Family hx anesthesia problems: none Results Review: All pre-operative results and documents have been reviewed as part of the pre-operative evaluation. [facility] Past Medical History Medical History Patient denies significant medical history Social History Social History Smoking status: Never smoker Alcohol use details: PRE- 3 DRINKS/MONTH Living arrangements: with family Additional living arrangements comments: [facility] Spiritual care concerns: No Anes - Eval Final PreProcedure Day of Procedure 07/31/24 12:01 Patient weight: obese Heart: regular rate and rhythm Lungs: clear to auscultation Airway: Mallampati scale class II Neurological: alert and oriented Last oral intake: >/= 8 hours ASA classification: II Emergent: no Anesthetic plan: proceed Anesthesia type and monitoring: general GIVS and standard monitoring Results Review: All pre-operative results and documents have been reviewed as part of the pre-operative evaluation. Informed Consent: The patient's anesthetic plan and its attendant risks and benefits were discussed with the patient/family/POA. Questions were solicited and answers provided to the satisfaction of the patient/family/POA.
[2024-07-31] MEDS: LIDOCAINE 1% LOCAL INJ 10 ML VIAL INFILTRATE (12:52)
[2024-07-31] MEDS: KETOROLAC 30 MG/ML VIAL (*BKC) IV PUSH (12:54)
--- NOTE | 2024-07-31 12:58 | W.PM.PROC2 ---
Procedure Note - Detailed Date of Procedure 07/31/24 Pre-op Diagnosis missed ab Post-op Diagnosis Same Procedure Performed Suction dilatation curettage Surgeon Jose Cruz Perez MD Anesthesia MAC and Local Indications Is a 29-year-old 2 para 0 1st trimester with a missed A/B Findings Uterus sounded to 10cm. Tissue consistent products of conception Description of Procedure Patient was prepped draped in the normal sterile fashion placed in the dorsal lithotomy position. Under excellent IV sedation weighted speculum placed in posterior fornix vagina. Anterior lip of the cervix grasped with a single-tooth tenaculum. 2.5cc 1% xylocaine anesthesia placed at 2, 4, 8, 10:00 a.m. of the cervix. Uterus sounded to 10cm. Serial dilatation fragmented dilators performed followed by passage of the 10. Suction curette moderate amount of fluid tissue fluid was removed. When a good grating sound was heard the instruments withdrawn the patient was awakened went recovery in satisfactory condition. All sponge, needle, instrument counts were correct. There were no immediate complications we did send the specimen fresh for chromosomes Estimated Blood Loss 25 Drains No Packing No Pathology Yes Complications No immediate complications Condition Stable Disposition PACU
[2024-07-31 13:00] VITALS: BP 132/75; PULSE 69; RESP 14; O2SAT 98
--- NOTE | 2024-07-31 13:09 | SUR.PHASEII ---
Patient is O+ blood type. No Rhogam needed.
[2024-07-31 13:30] VITALS: BP 134/67; PULSE 63
== END 2024-07-31 13:55 | disposition home or self-care (01) ==
PROVIDERS: PCP Family Medicine; Visit Provider Obstetrics & Gynecology
PROC: (CPT 59820; principal; 2024-07-31 13:30)
DX: O02.1 Missed abortion (principal); Z79.84 Long term (current) use of oral hypoglycemic drugs
CPT/HCPCS: 59820; 82948; 88305; A9270; J1100; J1885; J2003; J2250; J2405; J2704; J3010; J7120

== ENCOUNTER 2024-11-10 08:17 | Outpatient (CLI) | payer OTHER, SELFPAY ==
[2024-11-10 15:39] LABS: Hematocrit 40.3 % (37.0-47.0); Hemoglobin 12.4 g/dL (12.0-15.0); Immature Granulocyte Percent A 0.6 % (0-0.5); Lymphocytes Absolute Auto 2.22 K/mm3 (0.9-3.2); Mean Corpuscular HGB Conc 30.8 g/dl (32-36); Mean Corpuscular Hemoglobin 28.3 pg (26-34); Mean Corpuscular Volume 92.0 fl (80-100); Nucleated Red Blood Cells Absolute Auto 0.000 K/mm3 (0.0-0.012); Nucleated Red Blood Cells Perc 0.0 % (0.0-0.2); Platelet Count Result 368 k/mm3 (150-375); Red Blood Count 4.38 M/mm3 (4.2-5.4); White Blood Count 7.2 K/mm3 (4.5-10.0)
[2024-11-10 16:14] LABS: Alanine Aminotransferase 25 U/L (6-35); Albumin Level 4.5 g/dL (3.5-5.1); Alkaline Phosphatase 79 U/L (38-126); Anion Gap 12 mmol/L (4-12); Aspartate Amino Transferase 57 U/L (14-36); Bilirubin,Total 0.6 mg/dL (0.2-1.3); Blood Urea Nitrogen 9 mg/dL (7-17); Calcium 9.5 mg/dL (8.4-10.2); Carbon Dioxide 24 mmol/L (22-30); Chloride 102 mmol/L (98-107); Cholesterol 213 mg/dL (0-200); Estimated Glomerular Filt Rate > 60; Glucose 146 mg/dL (65-110); HDL Direct 41 mg/dL; Potassium 3.8 mmol/L (3.4-5.0); Sodium 138 mmol/L (137-145); Total Protein 8.2 g/dL (6.3-8.2); Triglycerides 274 mg/dL (<150)
[2024-11-10 16:28] LABS: Free T4 Free Thyroxine 1.00 ng/dL (0.78-2.19)
[2024-11-10 16:51] LABS: Thyroid Stimulating Hormone 1.800 uIU/mL (0.465-4.680)
== END 2024-11-10 08:18 | disposition home or self-care (01) ==
LOC: ANHGOSHLAB 08:21
PROVIDERS: Visit Provider Nurse Practitioner Family
DX: K21.9 Gastro-esophageal reflux disease without esophagitis (principal); E11.9 Type 2 diabetes mellitus without complications
CPT/HCPCS: 36415; 80053; 80061; 84439; 84443; 85025

== ENCOUNTER 2024-11-17 08:10 | Outpatient (CLI) | payer OTHER, SELFPAY ==
--- OUTSIDE RECORDS SUMMARY | 2024-11-17 08:36 | XMS_ITS | Clinical Summary ---
Author Organization [facility] Address [address] [place] [address] Care Team Providers Care Cafe Lead Name Role Phone Joey Reed MD Primary Care Provider Source Comments [facility],non-owned Affiliates and Associated Physician Practices is amultiple site organization consisting of ambulatory clinics and hospital sitesin [place], [place], [place] and [place]. This disclosure is being madepursuant to the Care Everywhere program and may not contain all information available regarding this patient. 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 ) from Last 3 Months Social History Tobacco Use Types Packs/Day Years Used Date Smoking Tobacco: Never Assessed Comments Unknown Sex and Gender Information Value Date Recorded Sex Assigned at Not on file Legal Sex Female 5:01 PM CDT Gender Identity Not on file Sexual Orientation Not on file Plan of Treatment Health Maintenance Due Date Last Done Comments HIV SCREENING 01/28/2011 HEPATITIS C SCREENING 01/24/2014 DTAP/TDAP/TD VACCINES (1 - Tdap) 01/28/2015 HEPATITIS B VACCINE (1 of 3 - 19+ 3-dose series) 01/28/2015 PAP SMEAR 01/28/2017 HPV VACCINE (1 - 3-dose SCDM series) 01/28/2023 DEPRESSION SCREENING 03/11/2024 COVID-19 VACCINE (1 - 2023-2 5 season) 2024 INFLUENZA VACCINE (#1) 2024 ZOSTER VACCINE (1 of 2) 01/28/2046 HIB VACCINE Aged Out No longer eligi ble based on patient's age to complete this topic MENINGOCOCCAL (Group B) VACC INE SHARED DECISION-MAKING Aged Out No longer eligibl e based on patient's age to complete this topic MENINGOCOCCAL GROUPS A/C/Y/W VACCINE Aged Out No longer eligible b ased on patient's age to complete this topic PNEUMOCOCCAL VACCINE Aged Out No long er eligible based on patient's age to complete this topic Insurance SELF PAY NO INSURANCE Member Subscriber Plan / Payer (Ef fective for All Dates) Name:Oziel Kirkland Member ID:Not on file Relation to Subscriber:Not on file Name:OZIEL KIRKLAND Subscriber ID:Not on file (Home) Address: [address] [place] [id number] Payer ID:Not on file Group ID:Not on file Type:Self Pay Address: [place], [place] [employer] * Guarantor: OZIEL KIRKLAND Account Type Relation to Patient Date of Phone Billing Address Personal/Family [address] [place] [phone] [employer] * Guarantor: OZIEL KIRKLAND Account Type Relation to Patient Date of Phone Billing Address Personal/Family [address] [place] [phone] ANTHEM [employer] * Guarantor: OZIEL KIRKLAND Relation to Patient Date of Phone Billing Address Personal/Family [address] [place] [phone] ANTHEM [employer] Care Teams Cafe Lead Relationship Specialty [place] [address] [place] [address] PCP - General 10/29/19
[2024-11-17 16:02] LABS: Hemoglobin A1C 6.5 % (<5.7)
== END 2024-11-17 08:11 | disposition home or self-care (01) ==
LOC: ANHGOSHLAB 08:11
PROVIDERS: Visit Provider Family Medicine
DX: E11.9 Type 2 diabetes mellitus without complications (principal)
CPT/HCPCS: 36415; 83036